=== PATIENT | female | born 1985 | race Two or more races ===

== ENCOUNTER 2019-02-20 09:59 | Emergency (ER) | payer MEDICAID ==
[~2019-02-20] VITALS: Ht 165.1 cm; Wt 54.4 kg
[~2019-02-20 09:59] MED LIST: PREN-96 PO
[2019-02-20 10:08] VITALS: BP 118/79
== END 2019-02-20 11:38 | disposition home or self-care (01) ==
LOC: ER 09:59
DX: N39.0 Urinary tract infection, site not specified (principal)
CPT/HCPCS: 81002

== ENCOUNTER 2019-08-29 09:16 | Emergency (ER) | payer MEDICAID ==
[~2019-08-29] VITALS: Ht 165.1 cm; Wt 54.4 kg
[2019-08-29 09:36] VITALS: BP 105/76
[2019-08-29] MEDS ORDERED: KETOROLAC TROMETH 60MG/2ML VIAL IM ONE (11:00)
[2019-08-29 11:01] LABS: Urine Bacteria FEW /hpf (None Seen); Urine Blood Negative /uL (Negative); Urine Mucus FEW (None Seen); Urine Specific Gravity 1.032 (1.001-1.035); Urine WBC 1 /hpf (0 - 5)
== END 2019-08-29 14:16 | disposition home or self-care (01) ==
LOC: ER 09:16
DX: M54.42 Lumbago with sciatica, left side (principal)
CPT/HCPCS: 76830; 76856; 81001; 81025; 96372; 99284; J1885